=== PATIENT | female | born 1990 | race African-American/Black ===

== ENCOUNTER 2017-06-26 15:59 | Emergency (ER) | payer OTHER ==
[~2017-06-26] VITALS: Ht 175.3 cm; Wt 68.0 kg
[2017-06-26 16:07] VITALS: BP 100/58
== END 2017-06-26 16:41 | disposition home or self-care (01) ==
LOC: ER 16:01
DX: S01.112D Laceration without foreign body of left eyelid and periocular area, subsequent encounter (principal); X58.XXXD Exposure to other specified factors, subsequent encounter
CPT/HCPCS: 99281; A4606; Z7610; Z7502